=== PATIENT | female | born 1990 | race Caucasian/White ===

== ENCOUNTER 2017-12-27 02:47 | Inpatient (IN) | payer OTHER ==
[2017-12-27] MEDS ORDERED: XYLOCAINE 2% INFILTRATI ONE ×2 (03:44→05:18)
[2017-12-27] MEDS ORDERED: BRETHINE SUB-Q PRN (03:44)
[2017-12-27] MEDS ORDERED: MINERAL OIL PO PRN (03:44)
[2017-12-27] MEDS ORDERED: STADOL IV PRN (03:44)
[2017-12-27] MEDS ORDERED: NARCAN 0.4 MG/1 ML IV PRN (03:44)
[2017-12-27] MEDS ORDERED: ePHEDrine SULFATE IV PRN (03:44)
[2017-12-27] MEDS ORDERED: BRETHINE IVP PRN (03:44)
--- NOTE | 2017-12-27 03:44 | History and Physical Report ---
History of Present Illness Date of admission: 12/27/17 03:10 Chief complaint: uterine contractions History of present illness: 27yo 38 weeks by LMP presents in active labor with SROM on the way to hospital at 2AM. She reports good movement and she has some bloody show on exam. She is dilated 6/-1. Her history is signfiicant from no care in [place] and a transfer to [facility] at 32 weeks. She had 4 visits. Her GBS is positive. - Vital Signs Vital signs: Temp Pulse Resp BP Pulse Ox 76 131/79 98 12/27/17 03:39 12/27/17 03:39 12/27/17 03:36 Results All other labs normal.
[2017-12-27] MEDS ORDERED: POLYCILLIN/NS 2 GM/100 ML 2 GM/100 ML BAG IV ONE (03:46)
[2017-12-27] MEDS ORDERED: LACTATED RINGERS 1,000 ML IV SCH (04:00)
[2017-12-27] MEDS ORDERED: PITOCin/NS 20 UNIT/1000ML DRIP 20 UNITS/1,000 ML BAG IV SCH (04:00)
[2017-12-27 04:21] LABS: Hematocrit 41.7 % (30.3-42.9); Hemoglobin 14.1 gm/dl (10.1-14.3); Mean Corpuscular HGB Conc 34 % (30-34); Mean Corpuscular Hemoglobin 30 pg (28-32); Mean Corpuscular Volume 87 fl (79-97); Platelet Count 133 K/mm3 (140-440); Red Blood Count 4.78 M/mm3 (3.65-5.03); Red Cell Distribution Width 12.6 % (13.2-15.2)
[2017-12-27] MEDS ORDERED: MILK OF MAGNESIA PO PRN (06:06)
[2017-12-27] MEDS ORDERED: PHENERGAN PO PRN (06:06)
[2017-12-27] MEDS ORDERED: ZOFRAN IV PRN (06:06)
[2017-12-27] MEDS ORDERED: DULCOLAX PR PRN (06:06)
[2017-12-27] MEDS ORDERED: TUCKS PAD TP PRN (06:06)
[2017-12-27] MEDS ORDERED: NORCO 5/325 PO PRN (06:06)
[2017-12-27] MEDS ORDERED: LANSINOH TP PRN (06:06)
[2017-12-27] MEDS ORDERED: PHENERGAN PR PRN (06:06)
[2017-12-27] MEDS ORDERED: TYLENOL PO PRN (06:06)
[2017-12-27] MEDS ORDERED: BENADRYL PO PRN (06:06)
--- NOTE | 2017-12-27 06:16 | Procedure Note ---
OB Delivery Note - Delivery Surgeon: LUCY LIND Estimated blood loss: 200cc - Vaginal Intrapartum events: none Delivery augmentation: rupture of membranes Delivery monitor: external FHT Route of delivery: Delivery placenta: spontaneous Delivery cord: nuchal cord (easily reduced) Episiotomy: none Delivery laceration: 2nd degree Delivery repair: vicryl (2-0 and 3-0) Anesthesia: other (Lidocaine 2%) - Infant A at 1 minute: 9 at 5 minutes: 10 Infant Gender: Female (Weight 6lb 11 oz)
[2017-12-27] MEDS ORDERED: SODIUM CHLORIDE FLUSH SYRINGE 10 ML IV PRN (07:00)
[2017-12-27] MEDS ORDERED: AMPICILLIN/NS 1 GM/50 ML 1 GM/50 ML BAG IV SCH (08:00)
[2017-12-27] MEDS: MOTRIN PO SCH ×2 (10:05→18:27)
[2017-12-27 21:24] LABS: Hematocrit 34.6 % (30.3-42.9); Hemoglobin 11.7 gm/dl (10.1-14.3)
[2017-12-28] MEDS: MOTRIN PO SCH ×5 (00:10→23:44)
--- NOTE | 2017-12-28 11:38 | Progress Note ---
Assessment and Plan A: day 1 S/P spontaneous vaginal delivery. P: Anticipate discharge tomorrow. Subjective - Subjective Date of service: 01/04/18 Principal diagnosis: day 1 S/P spontaneous vaginal delivery Interval history: day 1 S/P spontaneous vaginal delivery. Doing well. Patient reports small amount of lochia. She is voiding without difficulty and ambulating well. She is tolerating a regular diet without nausea or vomiting. Patient denies headache, cough, shortness of breath, chest pain, abdominal pain , leg pain, heavy bleeding, or symptoms of depression. Patient reports: appetite normal, voiding normally, pain well controlled, flatus , ambulating normally : doing well Objective - Vital Signs Latest vital signs: Vital Signs Temp Pulse Resp BP BP Pulse Ox 12/28/17 08:13 98.3 F 60 18 102/61 99 12/28/17 04:00 98 F 63 16 113/68 12/28/17 00:00 98.6 F 61 16 114/79 12/27/17 20:00 98.6 F 72 18 100/66 12/27/17 19:00 98.7 F 74 18 112/67 12/27/17 16:22 98.8 F 79 18 104/48 96 12/27/17 11:46 98.8 F 75 18 100/56 95 Intake and Output 12/27/17 12/28/17 12/28/17 23:59 07:59 15:59 Intake Total 300 Output Total 800 1400 Balance -800 -1400 300 Intake: Oral 180 Intake, Free Water 120 Output: Urine 800 1400 Void 800 1400 Other: Total, Intake Amount 180 Total, Output Amount 800 800 # Voids Void 1 1 1 # Bowel Movements 0 - Exam Breasts: Present: deferred Cardiovascular: Present: Regular rate, Normal S1, Normal S2, No murmurs Lungs: Present: Clear to auscultation Abdomen: Present: normal appearance, soft, normal bowel sounds. Absent: distention, tenderness, guarding Uterus: Present: normal, firm, fundal height below umbilicus. Absent: bogginess , tenderness Extremities: Present: normal. Absent: tenderness, edema
--- NOTE | 2017-12-28 18:25 | Event Note ---
Date: 12/28/17 Infection of skin of left breast noted. Start Dicloxacillin and use warm compresses QID.
[2017-12-29] MEDS: DYNAPEN PO SCH ×4 (01:32→18:30)
[2017-12-29] MEDS: MOTRIN PO SCH ×3 (05:59→18:15)
[2017-12-29] MEDS ORDERED: BOOSTRIX IM ONE (15:22)
--- NOTE | 2017-12-29 17:54 | Progress Note ---
Assessment and Plan A: day 2. P: Discharge patient home today. Advised pt. to continue her vitamins and iron at home. Advised pt. to take the Dicloxacillin QID. Advised pt. to follow up at [facility] to check her left breast again in 1 week. discharge instructions and warning signs were discussed with pt. Advised pt. to avoid sex, driving, lifting, and heavy housework. Pt. voiced understanding of discharge instructions. Subjective - Subjective Date of service: 12/29/17 Principal diagnosis: day 2 S/P spontaneous vaginal delivery Interval history: day 2 S/P spontaneous vaginal delivery. Doing well. Patient reports small amount of lochia. She is voiding without difficulty and ambulating well. She is tolerating a regular diet without nausea or vomiting. Patient denies headache, cough, shortness of breath, chest pain, abdominal pain , leg pain, heavy bleeding, or symptoms of depression. Patient is taking Dicloxacillin for skin infection of left breast. Patient reports: appetite normal, voiding normally, pain well controlled, flatus , ambulating normally : doing well Objective - Vital Signs Latest vital signs: Vital Signs Temp Pulse Resp BP BP Pulse Ox 12/29/17 08:20 98.3 F 70 20 99/59 98 12/29/17 08:14 98.3 F 70 20 99/59 12/29/17 01:00 98.7 F 64 16 100/78 Intake and Output 12/29/17 12/29/17 12/29/17 07:59 15:59 23:59 Intake Total 300 Balance 300 Intake: Intake, Free Water 300 - Exam Breasts: Present: other (mild redness skin of left breast; pt. is taking Dicloxacillin for this and will be discharged home on Dicloxacillin) Cardiovascular: Present: Regular rate Lungs: Present: Clear to auscultation Abdomen: Present: normal appearance, soft. Absent: distention, tenderness, guarding, rigidity Uterus: Present: normal, firm, fundal height below umbilicus. Absent: bogginess , tenderness Extremities: Present: normal. Absent: tenderness, edema
[2017-12-29 17:55] VITALS: BP 91/53
--- NOTE | 2017-12-29 18:01 | Discharge Summary ---
Providers - Providers Date of Admission: 12/27/17 03:10 Date of discharge: 12/29/17 Attending physician: EDY WILKINS MD Primary care physician: EDY WILKINS MD Hospitalization Reason for admission: active labor Delivery: Episiotomy: none Laceration: 2nd degree Other procedures: none complications: none Discharge diagnosis: IUP at term delivered baby: female Pertinent studies: Labs Hospital course: Normal hospital course. Condition at discharge: Good Disposition: DC-01 TO HOME OR SELFCARE - Discharge Diagnoses (1) Term delivered Status: Acute Plan - Provider Discharge Summary Activity: routine, no sex for 6 weeks, no heavy lifting 4 weeks, no strenuous exercise Diet: routine Instructions: routine Additional instructions: Take Dicloxacillin by oral route every 6 hours (Rx has been called to [facility] on [address] Continue taking your vitamins and iron. Call your doctor immediately for: * Fever > 100.5 * Heavy vaginal bleeding ( >1 pad per hour) * Severe persistent headache * Shortness of breath * Reddened, hot, painful area to leg or breast - Follow up plan Follow up: EDY WILKINS MD [Primary Care Provider] - 7 Days
== END 2017-12-29 21:15 | disposition home or self-care (01) | DRG 775 ==
LOC: TRG 02:47 → LD 03:10 → OB 07:50
PROVIDERS: ADMIT Obstetrics & Gynecology; ATTEND Obstetrics & Gynecology
PROC: 10E0XZZ Delivery of Products of Conception, External Approach (ICD-10-PCS; principal; 2017-12-27)
PROC: 0KQM0ZZ Repair Perineum Muscle, Open Approach (ICD-10-PCS; 2017-12-27)
PROC: 3E0234Z Introduction of Serum, Toxoid and Vaccine into Muscle, Percutaneous Approach (ICD-10-PCS; 2017-12-29)
DX: O99.824 Streptococcus B carrier state complicating childbirth (principal); O69.81X0 Labor and delivery complicated by cord around neck, without compression, not applicable or unspecified; O70.1 Second degree perineal laceration during delivery; Z37.0 Single live birth; Z3A.38 38 weeks gestation of pregnancy; Z23 Encounter for immunization
CPT/HCPCS: 36415; 85014; 85018; 85027; 86592; 86850; 86900; 86901; 90471; J0290; J0595; J2590; J7120